=== PATIENT | female | born 1990 | race Caucasian/White ===

== ENCOUNTER 2020-11-11 14:45 | Outpatient (CLI) | payer OTHER, SELFPAY ==
[2020-11-11 15:14] LABS: Basophils Percent Auto 0.2 % (0.2-1.2); Eosinophils Percent Auto 0.4 % (0-4.4); Hematocrit 41.5 % (37.0-47.0); Immature Granulocyte Absolute 0.07 K/mm3 (0.00-0.031); Immature Granulocyte Percent A 0.7 % (0-0.5); Lymphocytes Absolute Auto 1.58 K/mm3 (0.9-3.2); Lymphocytes Percent Auto 15.4 % (18.3-44.2); Mean Corpuscular HGB Conc 33.7 g/dl (32-36); Mean Corpuscular Hemoglobin 31.3 pg (26-34); Mean Corpuscular Volume 92.8 fl (80-100); Mean Platelet Volume 11.4 fl (7.4-10.4); Monocytes Absolute Auto 0.9 K/mm3 (0.1-0.6); Monocytes Percent Auto 9.1 % (2.6-8.5); Neutrophils Absolute Auto 7.6 K/mm3 (1.3-6.7); Neutrophils Percent Auto 74.2 % (45.5-73.1); Platelet Count Result 152 k/mm3 (150-375); Red Blood Count 4.47 M/mm3 (4.2-5.4); Red Cell Distribution Width 13.4 % (11.5-14.5); White Blood Count 10.3 K/mm3 (4.5-10.0)
[2020-11-11 15:16] VITALS: BP 136/81; PULSE 97
[2020-11-11 15:23] LABS: Alanine Aminotransferase 20 U/L (4-35); Albumin Level 3.2 g/dL (3.5-5.1); Alkaline Phosphatase 198 U/L (38-126); Anion Gap 4 mmol/L (8-16); Aspartate Amino Transferase 24 U/L (14-36); Bilirubin,Total 0.1 mg/dL (0.2-1.3); Blood Urea Nitrogen 15 mg/dL (7-17); Calcium 9.7 mg/dL (8.4-10.2); Carbon Dioxide 23 mmol/L (22-30); Chloride 109 mmol/L (98-107); Estimated Glomerular Filt Rate > 60; Glucose 95 mg/dL (65-105); Potassium 4.1 mmol/L (3.4-5.0); Sodium 136 mmol/L (137-145)
[2020-11-11 15:31] VITALS: BP 134/82; PULSE 97
[2020-11-11 15:46] VITALS: BP 126/77; PULSE 85
== END 2020-11-11 15:49 | disposition home or self-care (01) ==
LOC: ANHOBOP 14:49 → ANHOBPP 14:51
PROVIDERS: PCP Family Medicine; Referring Provider Advanced Practice Midwife; Visit Provider Obstetrics & Gynecology
DX: O13.3 Gestational [pregnancy-induced] hypertension without significant proteinuria, third trimester (principal); Z3A.38 38 weeks gestation of pregnancy
CPT/HCPCS: 36415; 59025; 80053; 84550; 85025; 99199

== ENCOUNTER 2020-11-16 16:47 | Inpatient (IN) | payer OTHER, SELFPAY ==
[2020-11-16] VITALS (12 sets, daily range): BP systolic 103–151; BP diastolic 34–92; PULSE 87–97; TEMP 36.9; BMI 45.0
--- NOTE | 2020-11-16 16:47 | LDADM ---
This patient, Martina Hernandez, was admitted to Labor/Delivery/Recovery 107 on 11/16/20 at 16:47. Plans for labor, pain management and were discussed with patient. Patient/family oriented to hospital policies and general routines including ID bracelet, bed and alarms, visiting hours, pain management, procedures, bathroom and other care routines, personal items, smoking policy, room service/diet and guest tray routines, infant security routines, and visiting hours. Patient/Family are encouraged to report perceived risks to care and to ask questions if they do not understand what they are told or what they should do. See OBIX for further documentation.
[2020-11-16 17:21] LABS: Basophils Percent Auto 0.3 % (0.2-1.2); Eosinophils Percent Auto 0.4 % (0-4.4); Hematocrit 40.7 % (37.0-47.0); Immature Granulocyte Absolute 0.04 K/mm3 (0.00-0.031); Immature Granulocyte Percent A 0.4 % (0-0.5); Lymphocytes Absolute Auto 1.76 K/mm3 (0.9-3.2); Lymphocytes Percent Auto 17.7 % (18.3-44.2); Mean Corpuscular HGB Conc 34.4 g/dl (32-36); Mean Corpuscular Hemoglobin 31.7 pg (26-34); Mean Corpuscular Volume 92.1 fl (80-100); Mean Platelet Volume 11.6 fl (7.4-10.4); Monocytes Absolute Auto 0.8 K/mm3 (0.1-0.6); Neutrophils Absolute Auto 7.3 K/mm3 (1.3-6.7); Neutrophils Percent Auto 73.2 % (45.5-73.1); Platelet Count Result 148 k/mm3 (150-375); Red Blood Count 4.42 M/mm3 (4.2-5.4); Red Cell Distribution Width 13.4 % (11.5-14.5); White Blood Count 9.9 K/mm3 (4.5-10.0)
[2020-11-16 17:34] LABS: Glucose Point of Care 84 mg/dl (65-105)
[2020-11-16] MEDS: DINOPROSTONE 10 MG VAG INSERT VAGINAL (17:59)
--- NOTE | 2020-11-16 18:07 | WPDOBADMIT ---
Obstetrics - Admit Note Admission Note: record reviewed. No pertinent additions to the history and/or any subsequent changes in the physical findings that are not consistent with the expected course of the were found. MIL for GDMA2, cervadil, anticipate vaginal delivery Additions to the history and/or subsequent changes in the physical findings follow. None.
[2020-11-16] MEDS: CALCIUM CARBONATE (TUMS) 500 MG (200 MG ELEMENTAL) PO (19:23)
[2020-11-16] MEDS: ZOLPIDEM TARTRATE (*CRX) 5 MG TABLET PO (21:16)
[2020-11-16] MEDS: INSULIN HUMAN NPH (*BKC) 100 UNITS/ML SUB-Q (21:16)
[2020-11-16 21:21] LABS: Glucose Point of Care 84 mg/dl (65-105)
[2020-11-17] VITALS (173 sets, daily range): BP systolic 100–160; BP diastolic 40–144; PULSE 65–196; RESP 16–20; TEMP 36.3–37.6; O2SAT 94–100
[2020-11-17 01:12] LABS: Glucose Point of Care 89 mg/dl (65-105)
[2020-11-17] MEDS: OXYTOCIN 30 UNITS/NS 500 ML 30 UNITS/500 ML BAG IV CONT (04:14)
[2020-11-17] MEDS: LACTATED RINGERS 1,000 ML 125 ML IV CONT ×2 (04:14→07:45)
[2020-11-17 04:24] LABS: Glucose Point of Care 105 mg/dl (65-105)
--- NOTE | 2020-11-17 06:58 | WPDANESEPPF ---
Anes - Initial Pre Proc Eval Procedure: labor epidural Date/Time: 11/17/20 06:28 Surgeon: Mariela Bear MD Pre Op Diagnosis: labor pain Pre Op Diagnosis: iol Patient Data Age: 30 Gender: F Height: 1.63 m Weight: 119 kg Last Vital Signs Temp 36.8 C 11/17/20 06:20 Pulse 96 11/17/20 06:57 Resp 18 11/17/20 06:20 BP 101/84 11/17/20 06:57 Pulse Ox 98 11/17/20 06:55 Allergies Allergy/AdvReac Type Severity Reaction Status Date / Time No Known Allergies Allergy Verified 11/16/20 17:43 Home Medications Medication Instructions Recorded Confirmed Type insulin NPH isoph U-100 human 5 unit SUBCUT HS 10/31/20 11/16/20 History [Humulin N NPH U-100 Insulin] prenat.vits,jason,faj-ivkx-qabjo 1 tablet PO DAILY 11/16/20 11/16/20 History [ Vitamin] Laboratory Tests 11/16/20 11/16/20 11/16/20 17:16 17:16 17:16 WBC 9.9 K/mm3 K/mm3 (4.5-10.0) RBC 4.42 M/mm3 M/mm3 (4.2-5.4) Hgb 14.0 g/dL g/dL (12.0-15.0) Hct 40.7 % % (37.0-47.0) MCV 92.1 fl fl (80-100) MCH 31.7 pg pg (26-34) MCHC 34.4 g/dl g/dl (32-36) RDW 13.4 % % (11.5-14.5) Plt Count 148 k/mm3 L k/mm3 (150-375) MPV 11.6 fl H fl (7.4-10.4) Immature Gran % (Auto) 0.4 % % (0-0.5) Neut % (Auto) 73.2 % H % (45.5-73.1) Lymph % (Auto) 17.7 % L % (18.3-44.2) [place] % (Auto) 8.0 % % (2.6-8.5) Eos % (Auto) 0.4 % % (0-4.4) Baso % (Auto) 0.3 % % (0.2-1.2) Lymph # (Auto) 1.76 K/mm3 K/mm3 (0.9-3.2) [place] # (Auto) 0.8 K/mm3 H K/mm3 (0.1-0.6) Eos # (Auto) 0.0 K/mm3 K/mm3 (0-0.3) Baso # (Auto) 0.0 K/mm3 K/mm3 (0.0-0.1) Abs Immat Gran (auto) 0.04 K/mm3 H K/mm3 (0.00-0.031) Absolute Neuts (auto) 7.3 K/mm3 H K/mm3 (1.3-6.7) Absolute Nucleated RBC 0.0 K/mm3 K/mm3 (0.0-0.012) Nucleated RBC % 0.0 % % (0.0-0.2) POC Capillary Glucose RPR Pending Blood Type O Positive Antibody Screen Negative 11/16/20 11/16/20 11/17/20 17:19 21:14 01:05 WBC RBC Hgb Hct MCV MCH MCHC RDW Plt Count MPV Immature Gran % (Auto) Neut % (Auto) Lymph % (Auto) [place] % (Auto) Eos % (Auto) Baso % (Auto) Lymph # (Auto) [place] # (Auto) Eos # (Auto) Baso # (Auto) Abs Immat Gran (auto) Absolute Neuts (auto) Absolute Nucleated RBC Nucleated RBC % POC Capillary Glucose 84 mg/dl mg/dl 84 mg/dl mg/dl 89 mg/dl mg/dl (65-105) (65-105) (65-105) RPR Blood Type Antibody Screen 11/17/20 04:18 WBC RBC Hgb Hct MCV MCH MCHC RDW Plt Count MPV Immature Gran % (Auto) Neut % (Auto) Lymph % (Auto) [place] % (Auto) Eos % (Auto) Baso % (Auto) Lymph # (Auto) [place] # (Auto) Eos # (Auto) Baso # (Auto) Abs Immat Gran (auto) Absolute Neuts (auto) Absolute Nucleated RBC Nucleated RBC % POC Capillary Glucose 105 mg/dl mg/dl (65-105) RPR Blood Type Antibody Screen Patient hx anesthesia problems: none Family hx anesthesia problems: none [facility] Family History Family History Mother Hypertension Grandparent Family history of cardiovascular disease Cerebrovascular accident Social History Social History Smoking status: Never smoker Alcohol intake: current
[2020-11-17 07:27] LABS: Rapid Plasma Reagin Non-Reactive (NonReactive)
[2020-11-17] MEDS: CALCIUM CARBONATE (TUMS) 500 MG (200 MG ELEMENTAL) PO (07:44)
--- NOTE | 2020-11-17 07:45 | PM.OBPNLAB ---
Pain Control Date/time seen: 11/17/20 07:45 SROM at 0100, clear fluid, pitocin started, anticipate vaginal delivery
[2020-11-17 07:58] LABS: Glucose Point of Care 94 mg/dl (65-105)
[2020-11-17] MEDS: FAMOTIDINE 20 MG/2 ML VIAL IV PUSH (10:21)
[2020-11-17] MEDS: ONDANSETRON INJ 4 MG/2 ML VIAL IV PUSH (11:39)
[2020-11-17 12:07] LABS: Glucose Point of Care 67 mg/dl (65-105)
[2020-11-17 14:15] LABS: Glucose Point of Care 91 mg/dl (65-105)
--- NOTE | 2020-11-17 15:47 | P.PCNOB_ITS ---
OB - Delivery Note Procedure Delivery date: 11/17/20 Procedure: vaginal delivery events: Gestational Diabetes Intrapartal events: None Induction method: none, per misoprostol protocol and per pitocin protocol Delivery monitor: external FHT, external uterine and internal uterine Route of delivery: Laceration Description: Perineal - 2nd Degree Delivery repair: vicryl Specimen: Yes Quantitative Blood Loss (ml): 152 Anesthesia type: Epidural Disposition: floor [place] Baby Date of : 11/17/20 Time of : 15:30 Weeks of gestation at delivery: 39 gender: Male Weight (pounds): 7 Weight (ounces): 4 presentation: vertex position: Left Occiput Anterior Placenta delivery description: Spontaneous cord vessel description: 3 Vessels, Nuchal Cord, Clamped/Cut, Around Extremity x1 and Delayed Cord Clamping score one minute: 8 score five minutes: 9 Narrative: mother and baby skin to skin in stable condition
[2020-11-17] MEDS: OXYTOCIN 30 UNITS/NS 500 ML 30 UNITS/500 ML BAG 125 UNITS IV CONT (16:04)
[2020-11-17] MEDS: WITCH HAZEL 40 PADS 1 PAD TOPICAL (17:48)
--- NOTE | 2020-11-17 18:10 | OBPPTRN ---
Patient transferred to post room #292 via wheelchair. Support person present. Oriented to unit, room, information board, rooming in, admission packet and security measures. Patient verbalizes understanding.
[2020-11-18] MEDS: IBUPROFEN 600 MG TABLET PO ×3 (00:15→16:52)
[2020-11-18 05:00] VITALS: BP 123/73; PULSE 98; RESP 16; TEMP 35.8; O2SAT 100
[2020-11-18] MEDS: ACETAMINOPHEN 325 MG TABLET 650 MG PO ×2 (05:02→16:53)
[2020-11-18 05:25] LABS: Hematocrit 38.7 % (37.0-47.0)
--- NOTE | 2020-11-18 07:22 | P.PNOB_ITS ---
OB - PN: Subj Subjective Date/time seen: 11/18/20 07:22 Patient comments: no complaints baby status: doing well OB - PN: Obj Data Labs CBC & Chem 7: 11/18/20 05:06 Labs: Laboratory Results - last 24 hr 11/16/20 11/17/20 11/17/20 17:16 07:54 12:02 Hgb Hct POC Capillary Glucose 94 67 RPR Non-reactive 11/17/20 11/18/20 14:12 05:06 Hgb 13.0 Hct 38.7 POC Capillary Glucose 91 RPR OB - PN A/P Plan day: 1 Plan: routine care Time Spent With Patient Time: Total time spent is greater than 50% in coordination of care (as docume nted) at patient's floor/unit and/or counseling patient: Review of Systems Review of Systems: All systems reviewed & are unremarkable except as noted in HPI and below Exam Const: General: cooperative Psych: Attitude: cooperative Thought process: Normal thought process present Thought content: Yes Normal thought content present Insight: Good insight present (Psych) Judgement: Good judgement present (Psych)
--- NOTE | 2020-11-18 07:30 | PC.NURSE ---
PT introductions made and plan of care discussed per post , pain mangement, breast feeding, [id number] , pumping, daily care activities. PT received instructions this shift thru one to one discussion , mom baby care guide and demonstration,. No barriers to learning and both parents recipient of such instructions. PT verbalized understanding of such care.
--- NOTE | 2020-11-18 09:45 | WPDANLDPN2 ---
Anes-Prog Note L&D Date/Time: 11/18/20 09:45 Comfortable throughout: labor Neuraxial method: epidural Epidural/Spinal procedure site: clean & non-tender Neuro status: Neuro function grossly intact. Cardiovascular status: normal Respiratory status: normal Airway patency: baseline Mental status: baseline Post-Op hydration status: normal Vital Signs: Last Vital Signs Temp 35.8 C L 11/18/20 05:00 Pulse 98 11/18/20 05:00 Resp 16 11/18/20 05:00 BP 123/73 11/18/20 05:00 Pulse Ox 100 11/18/20 05:00 Pain score (VAS): 0 I/O: Intake & Output 11/17/20 11/18/20 11/18/20 23:59 07:59 15:59 Intake Total 500 Output Total 95 Balance 405 Post-procedural complaints: none Patient feedback: Patient satisfied with anesthetic care.
--- NOTE | 2020-11-18 09:55 | PC.NURSE ---
Consulted with patient, mother is attempting to breast. Mother states infant has been sleepy she has used the nipple shield for some feeding and is able to get infant latched and nursing for short bursts. ICP advised supplementation for low blood glucose. Mother voices concerns of supplementation and . Reviewed mother is currently using a nipple shield as an artificial nipple and that should not impact latching. Advised small amounts of 15mls will be paced fed to assist with suck swallow. Reviewed paced feeding with parents. Reviewed feeding cues, frequencies, duration of feedings, feeding elimination flow sheet, and signs of adequate intake. Demonstrated stimulation techniques to wake infant for feeding. Assisted with infant to breast. Reviewed positioning/alignment in cross cradle, holding breast in U hold and guided asymmetrical latch on. Infant was able to latch correctly after several attempts. nursed eagerly, with steady draws and occasional swallowing noted. Reviewed signs of a correct latch, effective nursing and suck swallow ratio. was able to maintain latch without discomfort to mother. Suggested mother stimulate while feeding to keep infant nursing effectively for increased stimulation, increased intake and to assist with maintaining deep latch. Nipple care reviewed of lanolin after each feeding and warm compresses as needed. Mother has been set up with pumping and has pumped a few times during the night. Feeding plan will be to put infant to breast every three hours for 15 minutes, if effectively feeding mother will switch to other breast. If is not effectively feeding mother will then supplement 15mls EBM/formula and then pump for 10-15 minutes. Instructed mother to call out for RN assistance if she is unable to latch for feeding or she has discomfort with nursing. Instructed feeding should be initiated three hours from start of last feeding or if feeding cues are noted before. Mother voiced understanding of information shared.
[2020-11-18 10:19] VITALS: PULSE 95; RESP 18; O2SAT 97
[2020-11-18] MEDS: MULTIVIT/MIN/PREN/FOL AC/IRON TABLET 1 TAB PO (10:33)
[2020-11-18] MEDS: CALCIUM CARBONATE (TUMS) 500 MG (200 MG ELEMENTAL) PO (10:33)
[2020-11-18] MEDS: DOCUSATE SODIUM 100 MG CAPSULE PO ×2 (10:33→16:52)
--- NOTE | 2020-11-18 14:15 | PC.NURSE ---
Mother called out for assist with feeding. Upon entering mother is attempting to breast. Mother states has been sleepy this feeding and has not been able to get to latch. Mother states last feeding was the most eager and effective feeding has had is disappointed he is not latching. Demonstrated stimulation techniques to wake infant for feeding. Assisted with to breast. Reviewed positioning/alignment in cross cradle, holding breast in U hold and guided asymmetrical latch on. was sleepy and made minimal effort to latch after 15 minute attempt of latching and stimulating to wake. Advised once mother attempts for 15 minutes to move on with supplementation and pumping. Assured mother this is normal and infant should be more awake and eager to feed within a few days, milk should transition in day 3-5 and this may also entice infant to latch and maintain latch. Reviewed breast pump care and usage, pumping schedule, nipple care, and collection and storage of breast milk. Encouraged uoix-ny-sdle, breast massage and manual expression to stimulate supply. Assessed patient for correct flange size, placement and draw. Patient verbalizes and demonstrates understanding of instructions.
[2020-11-18 15:30] VITALS: PULSE 95; RESP 20; O2SAT 100
[2020-11-18 20:40] VITALS: BP 111/72; PULSE 97; RESP 18; TEMP 36.1; O2SAT 100
[2020-11-19] MEDS: IBUPROFEN 600 MG TABLET PO ×2 (01:20→10:02)
[2020-11-19] MEDS: ACETAMINOPHEN 325 MG TABLET 650 MG PO (05:19)
--- NOTE | 2020-11-19 08:26 | PM.OBPNVD ---
OB - PN: Subj Subjective Date/time seen: 11/19/20 08:26 Patient comments: no complaints baby status: doing well OB - PN: Obj Data Labs CBC & Chem 7: 11/18/20 05:06 OB - PN A/P Plan day: 2 Plan: routine care and discharge home Comments: DC instructions given Time Spent With Patient Time: Total time spent is greater than 50% in coordination of care (as documented) at patient's floor/unit and/or counseling patient: Time with patient: less than 15 minutes Exam Narrative: Exam Narrative: NAD abdomen soft, nontender, fundus firm below the umbilicus Extremities nontender, 2+ edema
--- NOTE | 2020-11-19 08:29 | PM.OBDSVD ---
DS: Admitting Diagnosis Admitting Diagnosis Admitting Diagnosis: GDM, term IOL DS: Discharge Diagnosis Discharge Diagnosis (1) , delivered: Code(s): O80 - Encounter for full-term uncomplicated delivery Status: Acute OB - DS: Summary OB Procedures : NST OB Procedures Intrapartum: Spontaneous Vag Delivery OB Procedures: : None Peripartum Data Infant Delivery Method: Natural Vaginal complications: none Status at Discharge Functional status at discharge: independent ambulation Time Spent with Patient Time attestation: Total time spent providing and/or coordinating discharge services: DS: Data Data Completed and Pending Pending studies at discharge: Pending at discharge 11/17/20 15:40 Surgical [PTH] Routine Discharge Plan Discharge Attending physician on discharge: Debi Sawyer Discharging Clinician: Debi Sawyer Anticipated Discharge Date/Time: 11/19/20 11:00 Patient Disposition: Home, Self-Care Activity: pelvic rest Diet: as tolerated Patient Instructions: Antibiotic Form Stand Alone Forms: General Discharge Information Follow-up/Referrals: Debi Sawyer MD [Physician] - (4 weeks) Discharge Medications: Continued Vitamin Tablet 1 tablet PO DAILY RF: 0 Discontinued Humulin N NPH U-100 Insulin 100 unit/mL Suspension 5 unit SUBCUT HS RF: 0 Date of admission: 11/16/20 16:47 Primary Care Provider: Claudio Lepe Admitting Provider: Mariela Bear Attending physician on admission: Mariela Bear Condition: Stable
[2020-11-19 08:40] VITALS: BP 130/82; PULSE 91; RESP 18; TEMP 36.1; O2SAT 96
[2020-11-19] MEDS: MULTIVIT/MIN/PREN/FOL AC/IRON TABLET 1 TAB PO (10:02)
[2020-11-19] MEDS: DOCUSATE SODIUM 100 MG CAPSULE PO (10:02)
[2020-11-22 11:12] VITALS: BP 126/86; PULSE 100; RESP 20; TEMP 36.6; O2SAT 100
== END 2020-11-19 14:05 | disposition home or self-care (01) | DRG 807 ==
LOC: ANHLDR 16:51 → ANHOB2 11-19 08:29 → ANHLDR 11-22 09:48 → ANHOB2 11-22 09:48
PROVIDERS: Advanced Practice Midwife; Obstetrics & Gynecology; Admitting Provider Obstetrics & Gynecology; PCP Family Medicine; Visit Provider Obstetrics & Gynecology
DX: O24.429 Gestational diabetes mellitus in childbirth, unspecified control (principal); Z37.0 Single live birth; Z3A.39 39 weeks gestation of pregnancy; O36.8330 Maternal care for abnormalities of the fetal heart rate or rhythm, third trimester, not applicable or unspecified; O70.1 Second degree perineal laceration during delivery; O99.214 Obesity complicating childbirth; E66.01 Morbid (severe) obesity due to excess calories; O69.2XX0 Labor and delivery complicated by other cord entanglement, with compression, not applicable or unspecified
CPT/HCPCS: 36415; 82948; 84112; 85014; 85018; 85025; 86592; 86850; 86900; 86901; 88307; A9270; J1815; J2405; J2590; J2795; J7120

== ENCOUNTER 2022-11-05 12:12 | Outpatient (CLI) | payer OTHER, SELFPAY ==
--- NOTE | ~2022-11-05 | US_ITS ---
EXAMINATION: US venous doppler [facility] DATE: 11/05/2022 12:41 INDICATION: Left lower limb pain. TECHNIQUE: Grayscale ultrasound images without and with compression and Doppler ultrasound images of the left lower extremity veins were obtained. COMPARISON: None. FINDINGS: The visualized portions of left common femoral vein, profunda (deep) femoral vein, femoral vein, popl iteal vein, peroneal veins, posterior tibial veins, and greater saphenous vein outflow are patent. IMPRESSION: 1. No deep venous thrombosis. Reviewed, dictated and finalized at location A.
== END 2022-11-05 12:13 | disposition home or self-care (01) ==
PROVIDERS: PCP Family Medicine; Visit Provider Advanced Practice Midwife
DX: M79.605 Pain in left leg (principal)
CPT/HCPCS: 93971

== ENCOUNTER 2023-03-06 09:18 | Inpatient (IN) | payer OTHER, SELFPAY ==
[2023-03-06] VITALS (45 sets, daily range): BP systolic 64–135; BP diastolic 43–94; PULSE 68–108; RESP 16–18; TEMP 36.2–37.1; O2SAT 94–100; BMI 43.1
--- NOTE | 2023-03-06 09:43 | LDADM ---
This patient, Martina Hernandez, was admitted to Labor/Delivery/Recovery 120 on 03/06/23 at 09:18. Plans for labor, pain management and were discussed with patient. Patient/family oriented to hospital policies and general routines including ID bracelet, bed and alarms, visiting hours, pain management, procedures, bathroom and other care routines, personal items, smoking policy, room service/diet and guest tray routines, infant security routines, and visiting hours. Patient/Family are encouraged to report perceived risks to care and to ask questions if they do not understand what they are told or what they should do. See OBIX for further documentation.
[2023-03-06 10:00] LABS: Basophils Percent Auto 0.3 % (0.2-1.2); Eosinophils Absolute Auto 0.1 K/mm3 (0-0.3); Eosinophils Percent Auto 0.8 % (0-4.4); Hematocrit 41.6 % (37.0-47.0); Hemoglobin 14.1 g/dL (12.0-15.0); Immature Granulocyte Absolute 0.03 K/mm3 (0.00-0.031); Immature Granulocyte Percent A 0.3 % (0-0.5); Lymphocytes Absolute Auto 2.04 K/mm3 (0.9-3.2); Lymphocytes Percent Auto 19.4 % (18.3-44.2); Mean Corpuscular HGB Conc 33.9 g/dl (32-36); Mean Corpuscular Volume 94.3 fl (80-100); Mean Platelet Volume 11.5 fl (7.4-10.4); Monocytes Absolute Auto 0.8 K/mm3 (0.1-0.6); Monocytes Percent Auto 7.7 % (2.6-8.5); Neutrophils Absolute Auto 7.6 K/mm3 (1.3-6.7); Neutrophils Percent Auto 71.5 % (45.5-73.1); Platelet Count Result 164 k/mm3 (150-375); Red Blood Count 4.41 M/mm3 (4.2-5.4); Red Cell Distribution Width 13.1 % (11.5-14.5); White Blood Count 10.5 K/mm3 (4.5-10.0)
[2023-03-06 10:04] LABS: Glucose Point of Care 71 mg/dl (65-105)
[2023-03-06] MEDS: LACTATED RINGERS 1,000 ML 999 ML IV CONT (10:14)
--- NOTE | 2023-03-06 10:16 | PM.IMHP ---
H&P: HPI History of Present Illness Date/Time: 03/06/23 10:16 Chief Complaint: Term Narrative: 32-year-old female, multiparous, at term with macrosomic infant. We have agreed to perform delivery. She understands there are risks to the surgery. She understands that injuries may occur that result in hospitalization, more surgery, and severe illness. She has stands there is risk of hemorrhage and infection. She denies any nausea, vomiting, fever, chills. She denies any chest pain or shortness of breath. Review of Systems Review of Systems: All systems reviewed & are unremarkable except as noted in HPI and below Constitutional: Constitutional: Denies chills, Denies fatigue, Denies fever(s) and Denies weakness Eyes: Eyes: Denies blurry vision, Denies change in vision, Denies loss of peripheral vision, Denies loss of vision, Denies other visual disturbances and Denies eye pain ENT: Denies vertigo, Denies dizziness, Denies hearing loss, Denies mouth pain, Denies nasal obstruction, Denies neck mass and Denies neck pain Cardiovascular: Cardiovascular: Denies chest pain, Denies diaphoresis, Denies syncope, Denies leg edema and Denies dyspnea Respiratory: Respiratory: Denies chest congestion, Denies cough, Denies hemoptysis, Denies dyspnea and Denies wheezing Gastrointestinal: Gastrointestinal: Denies abdominal pain, Denies constipation, Denies diarrhea, Denies nausea and Denies vomiting Genitourinary: Genitourinary: Denies hematuria, Denies change in libido, Denies nocturia, Denies genital lesions, Denies flank pain and Denies urinary urgency Musculoskeletal: Musculoskeletal: Denies abnormal gait, Denies back pain, Denies myalgias, Denies arthralgias, Denies joint swelling, Denies muscle weakness and Denies neck pain Integumentary/Breasts: Skin/Breast: Denies swelling, Denies breast pain, Denies breast mass, Denies dry skin, Denies nipple discharge, Denies unusual bruising and Denies jaundice Neurologic: Denies Neuro-related abnormal movements, Denies Abnormal speech present, Denies abnormal gait, Denies behavioral changes, Denies confusion, Denies vertigo, Denies dizziness, Denies syncope, Denies loss of vision, Denies memory loss, Denies convulsions and Denies weakness Psychiatric: Psychiatric: Denies abnormal sleep pattern, Denies behavioral changes, Denies change in libido, Denies confusion, Denies depression, Denies anhedonia and Denies memory loss Endocrine: Endocrine: Reports no additional endocrine complaints, Denies change in libido and Denies fatigue Hematologic/Lymphatic: Hematologic/Lymphatic: Reports no additional hematologic/lymphatic complaints Allergic/Immunologic: Allergic/Immunologic: Reports no additional allergic/immunologic complaints and Denies wheezing PMFSH Past Medical History Medical History (Updated 03/06/23 @ 10:17 by Mariela Bear MD) Gestational diabetes mellitus (GDM) Normal vaginal delivery Family History Family History Mother Hypertension Grandparent Family history of cardiovascular disease Cerebrovascular accident Social History Social History (System 08/30/21 @ 14:21 by Yeimi Garcia) Smoking status: Never smoker Alcohol intake: current Substance use: never Lack of Transportation: No Lack of Food: Never True Current Housing: I Have Housing Concerned About Future Housing: No Difficulty Paying Gas/Electric Bills: No Difficulty Paying for Meds: No Currently Unemployed: No Education: Don't Know Difficulty w/ Childcare or Family Care: No Spiritual care concerns: No Meds Home Medications and Allergies Home Medications Medication Instructions Recorded Confirmed Type prenat.vits,jason,ccd-lwat-imyzu 1 tablet PO DAILY 11/16/20 02/11/23 History Allergies Allergy/AdvReac Type Severity Reaction Status Date / Time No Known Allergies Allergy Verified 02/11/23 15:33 Vital Sig
--- NOTE | 2023-03-06 10:18 | WPDHPUPDATE1 ---
History and Physical Update Update Date/Time: 03/06/23 10:18 History and Physical has been reviewed, including an updated exam of the patient. There are NO changes in the patient's condition. Risks, benefits, and alternatives have been discussed and questions answered. Patient agrees to proceed with procedure.
[2023-03-06] MEDS: ceFAZolin 2 GM/D5W 50 ML 2 GM/50 ML BAG IVPB (10:33)
--- NOTE | 2023-03-06 11:39 | W.PM.PROC2 ---
Procedure Note - Detailed Date of Procedure 03/06/23 Pre-op Diagnosis Macrosomic Elective Post-op Diagnosis Other Procedure Performed Low-transverse section Surgeon Mariela Bear MD Anesthesia Spinal Indications Elective/Macrosomic Findings Normal gestational maternal anatomy, average size infant, normal Apgars. Description of Procedure The patient was taken the operating room. She was prepped and draped in dorsal supine position with a leftward tilt. This was done after spinal anesthetic was applied. A low-transverse skin incision was made and carried down till of the fascia with the knife. The fascial incision was made with the knife. The fascial incision was extended laterally with Best scissors. The fascia was tented upward superiorly and inferiorly the rectus muscles were dissected off bluntly. The rectus muscles were the midline. The preperitoneal fat and peritoneum were dissected open bluntly at the superior aspect of the rectus muscles. The peritoneal incision was extended superior and inferior with good position of bladder. The uterine incision was made with a scalpel down to the level of the amniotic cavity. The amniotic cavity was entered bluntly. The infant was delivered. The cord was clamped and cut and the was handed off to waiting pediatric staff. Cord bloods were obtained. The placenta was removed manually. The uterus was exteriorized. The uterus was cleared of all clots, debris and membranes. The uterus was closed in 0 Vicryl running lock fashion. An imbricating over a was placed along the incision line as well. The uterus was returned to the abdomen. The gutters were cleared of all clots and debris. The fascia was closed with 0 Vicryl running fashion. The subcutaneous tissue was irrigated pinpoint bleeders were cauterized. The skin was closed with subcuticular absorbable antonio. The skin incision line was covered with glue. The patient tolerated the procedure well. She has taken recovery room in stable condition. Sponge lap and needle counts were correct x2. Estimated Blood Loss 330 Complications No immediate complications Condition Stable Disposition PACU
[2023-03-06] MEDS: KETOROLAC 30 MG/ML VIAL (*BKC) IV PUSH (11:52)
[2023-03-06] MEDS: OXYTOCIN 30 UNITS/NS 500 ML 30 UNITS/500 ML BAG 125 UNITS IV CONT (12:00)
--- NOTE | 2023-03-06 15:14 | OBPPTRN ---
1418 Patient transferred to post room #282 via stretcher. Support person present. Oriented to unit, room, information board, rooming in, admission packet and security measures. Patient verbalizes understanding.
[2023-03-06] MEDS: DEXTROSE 5%/0.45% SOD CHL 1,000 ML 125 ML IV CONT (16:36)
[2023-03-06] MEDS: HYDROcodone/acetaminophen (*CRX) 5-325 MG TABLET 1 TAB PO (21:50)
[2023-03-06] MEDS: IBUPROFEN 600 MG TABLET PO (21:50)
[2023-03-07 00:14] VITALS: BP 125/75; PULSE 96; RESP 18; TEMP 37.1; O2SAT 96
--- NOTE | 2023-03-07 04:32 | P.PNOB_ITS ---
OB - PN: Subj Subjective Date/time seen: 03/07/23 04:32 doing well post op day 1 no flatus pain well managed breast feeding OB - PN: Obj Data Labs 03/06/23 09:34 Labs: Laboratory Results - last 24 hr 03/06/23 03/06/23 09:34 09:50 WBC 10.5 H RBC 4.41 Hgb 14.1 Hct 41.6 MCV 94.3 MCH 32.0 MCHC 33.9 RDW 13.1 Plt Count 164 MPV 11.5 H Immature Gran % (Auto) 0.3 Neut % (Auto) 71.5 Lymph % (Auto) 19.4 [place] % (Auto) 7.7 Eos % (Auto) 0.8 Baso % (Auto) 0.3 Lymph # (Auto) 2.04 [place] # (Auto) 0.8 H Eos # (Auto) 0.1 Baso # (Auto) 0.0 Abs Immat Gran (auto) 0.03 Absolute Neuts (auto) 7.6 H Absolute Nucleated RBC 0.0 Nucleated RBC % 0.0 POC Capillary Glucose 71 Blood Type O Positive Antibody Screen Negative OB - PN A/P Assessment and Plan (1) Macrosomia: Code(s): P08.0 - Exceptionally large baby Status: Acute (2) delivery delivered: Code(s): O82 - Encounter for delivery without indication Status: Acute Plan day: 1 Plan: routine care Time Spent With Patient Time: Total time spent is greater than 50% in coordination of care (as documented) at patient's floor/unit and/or counseling patient: Exam Const: General: cooperative, healthy appearing and comfortable Resp: Effort & Inspection: normal respiratory effort Cardio: Rate: regular rate Rhythm: regular rhythm GI: Other: incision CDI Skin: General skin exam: normal color Neuro: General: patient oriented x3 Extrem: Right lower extremity: edema Left lower extremity: edema
[2023-03-07] MEDS: IBUPROFEN 600 MG TABLET PO ×4 (05:10→22:32)
[2023-03-07] MEDS: HYDROcodone/acetaminophen (*CRX) 10-325 MG TABLET 1 TAB PO ×4 (05:10→22:32)
[2023-03-07 05:11] LABS: Basophils Percent Auto 0.4 % (0.2-1.2); Eosinophils Percent Auto 0.4 % (0-4.4); Hematocrit 34.8 % (37.0-47.0); Hemoglobin 11.4 g/dL (12.0-15.0); Immature Granulocyte Absolute 0.04 K/mm3 (0.00-0.031); Immature Granulocyte Percent A 0.4 % (0-0.5); Lymphocytes Absolute Auto 1.66 K/mm3 (0.9-3.2); Lymphocytes Percent Auto 15.4 % (18.3-44.2); Mean Corpuscular HGB Conc 32.8 g/dl (32-36); Mean Corpuscular Hemoglobin 31.8 pg (26-34); Mean Corpuscular Volume 96.9 fl (80-100); Mean Platelet Volume 11.1 fl (7.4-10.4); Monocytes Percent Auto 9.6 % (2.6-8.5); Neutrophils Absolute Auto 7.9 K/mm3 (1.3-6.7); Neutrophils Percent Auto 73.8 % (45.5-73.1); Platelet Count Result 133 k/mm3 (150-375); Red Blood Count 3.59 M/mm3 (4.2-5.4); Red Cell Distribution Width 13.1 % (11.5-14.5); White Blood Count 10.8 K/mm3 (4.5-10.0)
[2023-03-07 08:25] VITALS: BP 112/73; PULSE 88; RESP 16; TEMP 36.9; O2SAT 98
--- NOTE | 2023-03-07 08:30 | PC.NURSE ---
PT introductions made and plan of care discussed per post , post op c section, pain management, breast feeding, daily care activities. PT and fob both recipients of such instructions and no barriers to learning identified at this time. PT received such instructions per one to one discussion, mom baby care guide and demonstrations this shift. PT verbalized understanding of such care.
[2023-03-07 10:15] VITALS: PULSE 88; RESP 16; O2SAT 98
--- NOTE | 2023-03-07 10:57 | PC.NURSE ---
[id number] Introductions were made, then consulted with patient to assess needs related to . Mother led the conversation with her?plans to feed?her infant, history with low milk supply and the?experience so far is a bit pinchy . Mother works well with her with encouragement and education. Encouraged understanding of the benefits of skin to skin (demonstrating unwrapping infant and placing upright on her chest), stimulating with massage touch, changing positions to encourage wakefulness, how to watch for early feeding cues, responsive feeding, feeding on demand (aiming for 8-12 times in 24 hours, about every 2-3 hours), milk production, building/maintaining a milk supply, duration of feeding, signs of adequate intake/output and how to record on the feeding sheet. Reviewed positioning and ear, shoulder, hip alignment, supporting the breast to facilitate a deep latch, asymmetrical latch (off-center), leading with the chin with a big, open, wide gape and body close to mother. latched optimally to the left breast in football position. Infant is visualized to have a rare swallow and pulls back after a while to latch differently. Nipple is flattened on the underside of the nipple when infant is detached. This practice of latching deeply was practiced, parents were taught how to visualize the swallows and the difference between non-nutritive sucking. Education given to mother of how to visualize suck/swallow ratios and listen for drinking at the breast. Infant was able to maintain latch without discomfort to mother and at times a pinchy discomfort. Nipple care reviewed with optimal latch and good positioning. Mother was encouraged to continue to practice taking off the breast and re-latching for a deeper latch when infant is not swallowing or repositions and causes her pain. Infant was latched to the left breast using football positioning and we noticed the same on this side as we did the right side. Reviewed consistency for milk production and the risks of low milk supply based on her history and wide space between her breast. Recommended to switch up positioning as relearns a deeper latch. Reviewed good handwashing when or touching the breast/nipples to prevent infection. Resources used to facilitate learning were used with the mom and baby guide. Mother voiced understanding of skin to skin, stimulating with massage touch, responsive feedings, hand expressed colostrum, talking to to encourage if it has been 2 -2.5 hours since the start of the last , to call if does not latch, or if there is discomfort with . Resources provided for inpatient/outpatient with feeding sheet, name written on the communication board and the mom/baby guide. Parents voiced understanding of information, demonstrated learning and will call if there is a request for assistance. Reported to the Primary RN.
[2023-03-07] MEDS: SIMETHICONE 80 MG TAB.CHEW PO ×3 (11:12→22:33)
[2023-03-07] MEDS: DOCUSATE SODIUM 100 MG CAPSULE PO ×2 (11:13→16:00)
[2023-03-07] MEDS: POLYSACCHARIDE IRON COMPLEX 150 MG CAPSULE PO (11:14)
[2023-03-07] MEDS: MULTIVIT/MIN/PREN/FOL AC/IRON TABLET 1 TAB PO (11:14)
--- NOTE | 2023-03-07 13:15 | WPDANLDPN2 ---
Anes-Prog Note L&D Date/Time: 03/07/23 13:15 Comfortable throughout: section Neuraxial method: spinal Epidural/Spinal procedure site: clean & non-tender Neuro status: Neuro function grossly intact. Cardiovascular status: normal Respiratory status: normal Airway patency: baseline Mental status: baseline Post-Op hydration status: normal Vital Signs: Last Vital Signs Temp 36.9 C 03/07/23 08:25 Pulse 88 03/07/23 08:25 Resp 16 03/07/23 08:25 BP 112/73 03/07/23 08:25 Pulse Ox 98 03/07/23 08:25 O2 Del Method Room Air 03/06/23 14:18 Pain score (VAS): 3/10 I/O: Intake & Output 03/06/23 03/07/23 03/07/23 23:59 07:59 15:59 Intake Total 1040 1500 Output Total 200 2200 Balance 840 -700 Post-procedural complaints: none Patient feedback: Patient satisfied with anesthetic care.
--- NOTE | 2023-03-07 14:19 | PC.NURSE ---
[id number] Consulted with patient after a request. Mother is concerned with her milk supply. We reviewed second 24 hours and infant behaviors that require more attention of reassurance, [id number], switching from one breast to another often, holding, patting, shhhing and ways father of baby can help. Mother request a SNS incase medically (or family choice) infant needs to be supplemented at some point. Mother's history of low milk supply has heightened her anxiety about this. Demonstration, practice and discussion with the parents was completed regarding the use of the SNS. We reviewed the option of paced bottle feeding as well. Mother demonstrates independently moving her to each breast encouraging active . Parents voiced understanding of the information, how to assess for medical need to be supplemented and when to call for assistance.
[2023-03-07 17:06] LABS: Rapid Plasma Reagin Non-Reactive (NonReactive)
[2023-03-07 21:14] VITALS: BP 134/85; PULSE 96; RESP 18; TEMP 36.6; O2SAT 98
[2023-03-08] MEDS: IBUPROFEN 600 MG TABLET PO ×2 (05:10→12:44)
[2023-03-08] MEDS: HYDROcodone/acetaminophen (*CRX) 10-325 MG TABLET 1 TAB PO (05:10)
[2023-03-08 07:20] VITALS: BP 120/63; PULSE 78; RESP 16; TEMP 36.9; O2SAT 98
--- NOTE | 2023-03-08 07:41 | PM.OBPNVD ---
OB - PN: Subj Subjective Date/time seen: 03/08/23 07:41 Interval history: s/p section day 2, LGA doing well breast feeding no complaints OB - PN: Obj Data Labs 03/07/23 05:05 Labs: Laboratory Results - last 24 hr 03/06/23 09:34 RPR Non-reactive OB - PN A/P Plan day: 1 Plan: routine care and discharge home Time Spent With Patient Time: Total time spent is greater than 50% in coordination of care (as documented) at patient's floor/unit and/or counseling patient: Review of Systems Review of Systems: All systems reviewed & are unremarkable except as noted in HPI and below Exam Const: General: cooperative and healthy appearing Chest: Chest palpation & inspection: normal inspection of the chest Resp: Effort & Inspection: normal respiratory effort Cardio: Rate: regular rate Rhythm: regular rhythm GI: Other: incision CDI Extrem: Right lower extremity: normal to inspection Left lower extremity: normal to inspection Psych: Appearance: grossly normal
--- NOTE | 2023-03-08 07:45 | PM.OBDSVD ---
DS: Admitting Diagnosis Discharge Date 03/08/23 Admitting Diagnosis LGA, DS: Discharge Diagnosis Discharge Diagnosis (1) delivery delivered: Code(s): O82 - Encounter for delivery without indication Status: Acute OB - DS: Summary OB Procedures : None OB Procedures Intrapartum: OB Procedures: : None Peripartum Data Procedures: Procedures Operation Date: 03/06/23 10:30 Actual Procedure Side Surgeon p Section Not Applicable Mariela Bear MD Time Spent with Patient Time attestation: Total time spent providing and/or coordinating discharge services: DS: Data Data Completed and Pending Labs on day of discharge: Labs from last 24 hours 03/06/23 09:34 RPR Non-reactive Discharge Plan Discharge Attending physician on discharge: Mariela Bear Discharging Clinician: Jessy Mallory Patient Disposition: Home, Self-Care Activity: pelvic rest Diet: regular Patient Instructions: Antibiotic Form Stand Alone Forms: General Discharge Information Follow-up/Referrals: Mariela Bear MD [Physician] - 1 Week Discharge Medications: New hydrocodone-acetaminophen 5-325 mg Tablet 1 tablet PO Q3H PRN (Reason: Moderate Pain (4-6)) 14 Days Qty: 30 0RF Continued prenat.vits,jason,[id number] Tablet 1 tablet PO DAILY Date of admission: 03/06/23 09:18 Primary Care Provider: Claudio Lepe Admitting Provider: Mariela Bear Attending physician on admission: Mariela Bear Condition: Stable
[2023-03-08] MEDS: DOCUSATE SODIUM 100 MG CAPSULE PO (08:25)
[2023-03-08] MEDS: MULTIVIT/MIN/PREN/FOL AC/IRON TABLET 1 TAB PO (08:25)
[2023-03-08] MEDS: HYDROcodone/acetaminophen (*CRX) 5-325 MG TABLET 1 TAB PO ×2 (08:26→12:44)
--- NOTE | 2023-03-08 11:40 | PC.NURSE ---
[id number] Mother led the conversation with her experience and plan to feed her so far and her ability to independently latch optimally without discomfort. Reminded parents to use good handwashing technique to prevent infection. Mother is feeding appropriately for growth of and understands stimulating to eat if needed. Infant has had appropriate feedings in the last 24 hours meets the outcomes for weight, output and jaundice at this time. Mother states she is confident to continue (with the SNS until her milk is in) her at home, when to call for assistance and denies any additional assistance or education at this time. Reinforced understanding of milk production, transition of milk, signs of adequate intake, transition of stool, prevention/relief of engorgement, plugged ducts, mastitis, responsive watching for feeding cues, the different methods of stimulating infant to breastfeed 2-3 hours after the start of the last feeding, community resources and when to call a provider using the resource of the mom and baby guide. Mother voiced understanding of the education shared. Reported to the primary RN.
--- NOTE | 2023-03-08 12:36 | PC.NURSE ---
Patient viewed the discharge video Mother & Baby Care, The First Two Weeks . Patient was given the opportunity and encouraged to ask questions. Patient verbalized understanding of information shared and has been given the mother/baby guide for home reference.
[2023-03-09 10:14] VITALS: BP 121/86; PULSE 83; RESP 18; TEMP 36.8; O2SAT 100
== END 2023-03-08 13:00 | disposition home or self-care (01) | DRG 788 ==
LOC: ANHLDR 09:21 → ANHOB2 14:22
PROVIDERS: Admitting Provider Obstetrics & Gynecology; PCP Family Medicine; Visit Provider Obstetrics & Gynecology
PROC: 10D00Z1 Extraction of Products of Conception, Low, Open Approach (ICD-10-PCS; CPT 59514; principal; 2023-03-06 10:30)
DX: O36.63X0 Maternal care for excessive fetal growth, third trimester, not applicable or unspecified (principal); O77.0 Labor and delivery complicated by meconium in amniotic fluid; Z37.0 Single live birth; Z3A.39 39 weeks gestation of pregnancy
CPT/HCPCS: 36415; 82948; 85025; 86592; 86850; 86900; 86901; A9270; J0690; J1885; J2274; J2371; J2405; J2590; J7120

== ENCOUNTER 2023-08-25 09:02 | Emergency (ER) | payer OTHER, SELFPAY ==
--- NOTE | ~2023-08-25 | CT_ITS ---
EXAMINATION: CT BRAIN W/O DATE: 08/25/2023 10:04 INDICATION: Headache TECHNIQUE: Computed tomography (CT) of the head was performed without intravenous contrast. The dose- length product was 529.67 mGy-cm. Automated exposure control and iterative reconstruction technique w ere employed. COMPARISON: No prior studies for comparison. FINDINGS: Normal brain parenchymal volume for age. Normal chambers-white differentiation. No acute intrac ranial hemorrhage, infarction, mass or mass effect. No ventriculomegaly or midline shift. Midline sagittal images demonstrate a normal corpus callosum, c raniovertebral junction and sella turcica. Basilar cisterns are patent. There is mucosal thickening of the sinuses. Mastoids are pneumatized. No depressed skull fractures. IMPRESSION: 1. No acute intracranial abnormality. 2: Moderate sinusitis. Reviewed, dictated and finalized at location A. [employer]
[2023-08-25 09:08] VITALS: BP 151/86; PULSE 97; RESP 18; TEMP 36.6; O2SAT 98
--- NOTE | 2023-08-25 10:00 | ED.HA ---
HPI - Headache General Chief Complaint: Headache Stated Complaint: Headache Time Seen by Provider: 08/25/23 09:55 Source: patient Mode of arrival: ambulatory Limitations: no limitations History of Present Illness HPI Narrative: This is a 33-year-old female that presents to the emergency department for a headache. Reports she woke up around 1 this morning with a severe headache that lasted for about 5 minutes. She has had a persistent achy pain since. She took a Tylenol tablet about 2 hours ago with little relief. Denies fevers, vision changes, vomiting, numbness, weakness. Related Data Home Medications Medication Instructions Recorded Confirmed prenat.vits,jason,[id number] 1 tablet PO DAILY 11/16/20 02/11/23 Allergies Allergy/AdvReac Type Severity Reaction Status Date / Time No Known Allergies Allergy Verified 08/25/23 10:11 Review of Systems Review of Systems: CONSTITUTIONAL: Denies fever EYES: Denies visual changes ENT: Reports congestion GASTROINTESTINAL: Denies nausea, vomiting NEUROLOGIC: Reports headache. denies numbness, or weakness. All systems reviewed & are unremarkable except as noted in HPI and below PMFSH Past Medical History Medical History (Updated 08/25/23 @ 11:22 by DANIEL FinneyC) delivery delivered C section x 2 Gestational diabetes mellitus (GDM) Normal vaginal delivery Family History Family History Mother Hypertension Grandparent Family history of cardiovascular disease Cerebrovascular accident Social History Social History (System 08/30/21 @ 14:21 by Yeimi Garcia) Smoking status: Never smoker Alcohol intake: current Substance use: never Lack of Transportation: No Lack of Food: Never True Current Housing: I Have Housing Concerned About Future Housing: No Difficulty Paying Gas/Electric Bills: No Difficulty Paying for Meds: No Currently Unemployed: No Education: Don't Know Difficulty w/ Childcare or Family Care: No Spiritual care concerns: No Exam Narrative: GENERAL: Well-appearing, well-nourished, and in no acute distress. HEAD: Normocephalic, atraumatic. EYES: PERRLA and EOMI. ENT: Nares clear, no rhinorrhea or epistaxis. Mucous membranes moist. Oropharynx without tonsillar hypertrophy exudate or other lesions. Bilateral TMs pearly chambers non-bulging NECK: Supple. No adenopathy or masses. Normal ROM CHEST: Clear to auscultation. No respiratory distress. No wheezes rales or rhonchi HEART: Regular rate and rhythm. No murmur heard. Normal peripheral pulses. ABDOMEN: Soft, nontender, nondistended, normal active bowel sounds. EXTREMITIES: Normal range of motion. No edema. Strength equal in bilateral upper and lower extremities (5/5) SKIN: Warm, dry, no rash. NEURO: No focal deficits. Alert and oriented x3. Cranial nerves 2-12 grossly intact. Normal gait PSYCH: Normal mood and affect Course Course Emergency Course: Patient updated on her workup and agrees with plan of care Vital Signs Vital signs: Vital Signs Temperature 97.9 F 08/25/23 09:08 Pulse Rate 97 08/25/23 09:08 Respiratory Rate 18 08/25/23 09:08 Blood Pressure 151/86 H 08/25/23 09:08 Pulse Oximetry 98 08/25/23 09:08 Oxygen Delivery Room Air 08/25/23 09:08 Temperature 97.9 F 08/25/23 09:08 Pulse Rate 83 08/25/23 11:12 Respiratory Rate 14 08/25/23 11:12 Blood Pressure 119/84 08/25/23 11:12 Pulse Oximetry 98 08/25/23 11:12 Oxygen Delivery Room Air 08/25/23 09:08 MDM - Headache MDM Narrative Medical decision making narrative: Patient presents to the ER for headache ongoing since this morning. Does report some associated congestion. She is afebrile and nontoxic appearing. Hypertensive upon arrival. This downtrended with treatment of pain. She is neurologically intact. CT brain without acute intracranial abnormality. Does show moderate sinusit
[2023-08-25 10:15] VITALS: BP 132/85; PULSE 86; RESP 14; O2SAT 97
[2023-08-25] MEDS: SODIUM CHLORIDE 0.9% IV 1,000 ML 999 ML IV CONT (10:18)
[2023-08-25] MEDS: diphenhydrAMINE HCl INJ 50 MG/ML VIAL 25 MG IV PUSH (10:19)
[2023-08-25] MEDS: METOCLOPRAMIDE HCL INJ 10 MG/2 ML VIAL IV PUSH (10:20)
[2023-08-25] MEDS: KETOROLAC 15 MG/ML VIAL (*BKC) IV PUSH (10:25)
[2023-08-25 11:12] VITALS: BP 119/84; PULSE 83; RESP 14; O2SAT 98
[2023-08-25 11:45] VITALS: BP 124/87; PULSE 90; RESP 13; TEMP 37.2; O2SAT 98
== END 2023-08-25 11:46 | disposition home or self-care (01) ==
PROVIDERS: Emergency Provider Physician Assistant; PCP Family Medicine
DX: J01.90 Acute sinusitis, unspecified (principal); B96.89 Other specified bacterial agents as the cause of diseases classified elsewhere; R51.9 Headache, unspecified
CPT/HCPCS: 70450; 96361; 96374; 96375; 99284; J1200; J1885; J2765; J7030

== ENCOUNTER 2024-04-20 19:37 | Emergency (ER) | payer OTHER, SELFPAY ==
--- NOTE | ~2024-04-20 | XR_ITS ---
EXAMINATION: XR foot LT min 3V DATE: 04/20/2024 19:50 INDICATION: Lateral mid left foot pain post injury TECHNIQUE: Dorsoplantar, two oblique and lateral views of the left foot were obtained. COMPARISON: None. FINDINGS: Bone alignment is normal. No fracture. Mild osteoarthritis at the first metatarsophalangeal and a few tarsometatarsal and interphalangeal joints. Moderate-sized plantar calcaneal spur. Soft tissues are unremarkable with no ankle joint effusion. IMPRESSION: 1. 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 No acute osseous abnormal ity. Reviewed, dictated and finalized at location A. IMPRESSION: 1. 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 No acute osseous abnormality.
[2024-04-20 19:51] VITALS: BP 147/96; PULSE 106; RESP 16; TEMP 36.4; O2SAT 99
--- NOTE | 2024-04-20 19:51 | ED.LOWEXIN ---
HPI - Extremity Injury (Lower) General Chief Complaint: Extremity Injury, Lower Stated Complaint: Injured Left Foot Time Seen by Provider: 04/20/24 19:51 Source: patient Mode of arrival: ambulatory Limitations: no limitations History of Present Illness HPI Narrative: 34 yo F presents with pain to lateral aspect L foot. Pt was dancing with her daughter, jumped up in air and came down on foot wrong causing pain. Ambulatory with normal gait. Concerned for fracture. ROM and distal NV intact. All systems reviewed and negative except as noted above. Related Data Home Medications Medication Instructions Recorded Confirmed drospirenone 3 mg-estetrol 14.2 mg 1 tablet PO DAILY 04/20/24 04/20/24 (28) tablet (Nextstellis) Allergies Allergy/AdvReac Type Severity Reaction Status Date / Time No Known Allergies Allergy Verified 04/20/24 19:42 Review of Systems Review of Systems: CONSTITUTIONAL: Denies fever, chills, or sweats. EYES: Denies visual changes, redness, or discharge. ENT: Denies rhinorrhea, congestion, sore throat, or otalgia. CARDIOVASCULAR: Denies chest pain, palpitations, or edema. RESPIRATORY: Denies cough or dyspnea. GASTROINTESTINAL: Denies abdominal pain, nausea, vomiting, or diarrhea. GENITOURINARY: Denies dysuria or hematuria. SKIN: Denies rash or itching. MUSCULOSKELETAL: Denies back pain, joint pain, or myalgia. Reports pain to lateral aspect of left foot with swelling. NEUROLOGIC: Denies headache, numbness, or weakness. PSYCHIATRIC: Denies anxiety or depression. All other systems reviewed are negative, except as documented in HPI. [facility] Past Medical History Medical History delivery delivered C section x 2 Gestational diabetes mellitus (GDM) Normal vaginal delivery Family History Family History Mother Hypertension Grandparent Family history of cardiovascular disease Cerebrovascular accident Social History Social History Smoking status: Never smoker Alcohol intake: current Substance use: never Lack of Transportation: No Lack of Food: Never True Current Housing: I Have Housing Concerned About Future Housing: No Difficulty Paying Gas/Electric Bills: No Difficulty Paying for Meds: No Currently Unemployed: No Education: Don't Know Difficulty w/ Childcare or Family Care: No Spiritual care concerns: No Comments At time of signature, agree with nursing past medical, surgical, social and family history. There is no relevant family history pertinent to the presenting complaint. Exam Narrative: GENERAL: This is a well-nourished, well-developed patient, in no apparent distress. HEAD: normocephalic, atraumatic. EYES: PERRL. Sclera clear/white. Vision is grossly intact. EARS: External ears normal NOSE: External nose normal NECK: Neck supple, non-tender without lymphadenopathy, masses or thyromegaly. CARDIOVASCULAR: Regular rate and rhythm without murmurs, gallops, or rubs. RESPIRATORY: Clear to auscultation. Breath sounds equal bilaterally. No wheezes, rales, or rhonchi. SKIN: warm, Dry, intact with no suspicious lesions or rash, good texture and turgor. NEURO: awake, alert, and oriented to person, place and time. There were no obvious focal neurologic abnormalities. EXTREMITIES: Swelling tenderness to lateral aspect of left foot. Fourth and 5th proximal metatarsal. No deformity noted. Range of motion and distal neurovascularly intact. Course Course Level of Care: Express Care Visit Vital Signs Vital signs: Vital Signs Temperature 36.4 C L 04/20/24 19:51 Pulse Rate 106 H 04/20/24 19:51 Respiratory Rate 16 04/20/24 19:51 Blood Pressure 147/96 H 04/20/24 19:51 Pulse Oximetry 99 04/20/24 19:51 Oxygen Delivery Room Air 04/20/24 19:51 Temperature 36.4
== END 2024-04-20 20:50 | disposition home or self-care (01) ==
PROVIDERS: Emergency Provider Nurse Practitioner Family
DX: S93.602A Unspecified sprain of left foot, initial encounter (principal); X50.9XXA Other and unspecified overexertion or strenuous movements or postures, initial encounter
CPT/HCPCS: 73630; 99213; G0463